=== PATIENT | male | born 1930 | race Two or more races ===

== ENCOUNTER 2019-09-26 01:45 | Emergency (ER) | payer OTHER ==
[~2019-09-26] VITALS: Ht 170.2 cm; Wt 68.0 kg
[2019-09-26 02:41] LABS: Basophils # (auto) 0 10 ^3/uL (0-0.2); Basophils % (auto) 0.3 % (0.0-2.0); Eosinophils # (auto) 0 10 ^3/uL (0-0.8); Eosinophils % (auto) 0.1 % (0.0-7.0); Hematocrit 38.9 % (41.0-53.0); Lymphocytes # (auto) 0.7 10 ^3/uL (0.4-5.4); Lymphocytes % (auto) 6.2 % (10.0-50.0); Mean Corpuscular Hemoglobin 26.1 pg (28.0-32.0); Mean Corpuscular Volume 84.2 fL (80.0-100.0); Monocytes # (auto) 0.6 10 ^3/uL (0-1.3); Monocytes % (auto) 5.4 % (0.0-12.0); Neutrophils # (auto) 9.7 10 ^3/uL (1.6-8.6); Platelet Count (auto) 210 10^3/uL (140-450); Red Blood Cells 4.62 10^6/uL (4.5-5.90); Red Cell Distribution Width 17.2 % (11.8-14.3)
[2019-09-26 02:45] LABS: Magnesium 2.4 mg/dL (1.6-2.6)
[2019-09-26 02:46] LABS: BUN/Creatinine Ratio 11.5; Calcium 9.7 mg/dL (8.5-10.1); Potassium 3.6 mmol/L (3.5-5.1)
[2019-09-26 02:49] LABS: Bilirubin, Total 0.5 mg/dL (0.2-1.0); Total Protein 7.9 g/dL (6.4-8.2)
[2019-09-26] MEDS ORDERED: SODIUM CHLORIDE 0.9% 1,000 ML IV ONE (04:45)
[2019-09-26 09:11] VITALS: BP 104/71
== END 2019-09-26 09:23 | disposition short-term general hospital (02) ==
LOC: EDBD 01:45 → ER 01:46
DX: R41.82 Altered mental status, unspecified (principal); I50.9 Heart failure, unspecified; E11.22 Type 2 diabetes mellitus with diabetic chronic kidney disease; N18.6 End stage renal disease; R79.89 Other specified abnormal findings of blood chemistry; Z99.2 Dependence on renal dialysis; Z88.6 Allergy status to analgesic agent
CPT/HCPCS: 36415; 70450; 71045; 80053; 82962; 83735; 83880; 84484; 85025; 93005; 96360; 96361; 99285; J7030